=== PATIENT | female | born 1985 | race Caucasian/White ===

== ENCOUNTER 2018-12-18 21:16 | Emergency (ER) | payer MEDICAID, OTHER ==
--- OUTSIDE RECORDS SUMMARY | 2018-12-18 21:33 | XMS REPORT ---
Author Author Snow Shook [facility] Address [address] [place], [place] [id number] Care Team Providers Care Yarn Tester Name Role Phone Snow Shook PCP Unavailable Allergies and Adverse Reactions Name Reaction Notes NO KNOWN DRUG ALLERGIES Plan of Treatment Not available. Medications Active Name Start Date Estimated Completion Date SIG Comments Zyrtec 10 mg oral tablet take 1 tablet by oral route 2 times a day haloperidol 5 mg oral tablet take 1 tablet by oral route once a day (in the morning) and 2 tablets in PM Protonix 40 mg oral tablet,delayed release (DR/EC) take 1 tablet (40 mg ) by oral route once daily topiramate 200 mg oral tablet take 1 tablet (200 mg) by oral route 2 times per day guanfacine 2 mg oral tablet extended release 24 hr take 1 tablet by oral route once a day (in the morning) Latuda 40 mg oral tablet take 1 tablet (40 mg) by oral route once daily with food (at least 350 calories) TriNessa (28) 0.18/0.215/0.25 mg-35 mcg (28) oral tablet take 1 tablet by oral route once daily Systane 0.4-0.3 % ophthalmic drops instill 1 drop in affected eye 2 times a day acetaminophen 325 mg oral tablet take 1 tablet (325 mg) by oral route every 4 hours as needed Tinactin 1 % topical aerosol,spray apply spray to affected area(s) by topical route 2 times a day triamcinolone acetonide 0.1 % topical cream apply a thin layer to the affected area(s) by topical route 2 times per day Benadryl Itch Stopping 1-0.1 % topical cream apply to affected area(s) by topical route 2 times a day ibuprofen 600 mg oral tablet 02/18/2016 take 1 tablet by oral route 3 times a day as needed Benefiber Clear SF (dextrin) 3 gram/3.5 gram oral powder in packet Cogentin 2 mg/2 mL injection solution Cough Drops mucous membrane Name Start Date Expiration Date SIG Comments benztropine 1 mg oral tablet take 1 tablet (1 mg) by oral route 2 times per day Depakote 500 mg oral tablet,delayed release (DR/EC) take 1 tablet (500 mg) by oral route 2 times per day Keppra XR 500 mg oral tablet extended release 24 hr take 1 tablet by oral route 2 times a day amoxicillin 500 mg oral capsule 09/24/2015 10/01/2015 take 1 capsule (500 mg ) by oral route 3 times per day for 7 days Macrobid 100 mg oral capsule 10/31/2015 11/05/2015 take 1 capsule (100 mg) by oral route every 12 hours with food for 5 days Zyrtec-D 5-120 mg oral tablet extended release 12 hr 02/18/2016 02/25/2016 take 1 tablet by oral route 2 times per day for 7 days Nexplanon 68 mg subdermal implant 03/08/2016 03/23/2013 implant 1 by subdermal route daily for 1 day Problem List Description Status Onset Bipolar Disorder Active GERD (gastroesophageal reflux disease) Active Mental retardation Active Seizure disorder Active Abdominal Pain Active NEXPLANON Insertion Active 03/08/2016 Vital Signs Date Time BP-Sys(mm[Hg] BP-Bertha(mm[Hg]) HR(bpm) RR(rpm) Temp WT HT HC BMI BSA BMI Percentile O2 Sat(%) 03/08/2016 10:41:00 AM 132 mmHg 76 mmHg 86 bpm 18 rpm 97 F 163 lbs 58 in 34.07 kg/m2 1.74 m2 02/18/2016 1:14:00 PM 120 mmHg 78 mmHg 74 bpm 16 rpm 96.4 F 164 lbs 70 in 23.5313 kg/m 1.9168 m 98 % 10/31/2015 3:46:00 PM 110 mmHg 70 mmHg 76 bpm 18 rpm 96.7 F 176 lbs 58 in 36.78 kg/m2 1.81 m2 99 % 09/24/2015 10:42:00 AM 110 mmHg 70 mmHg 67 bpm 16 rpm 97.2 F 172 lbs 58 in 35.9477 kg/m 1.7868 m 97 % 07/29/2014 1:45:00 PM 96 mmHg 60 mmHg 62 bpm 16 rpm 96.1 F 157 lbs 58 in 32.81 kg/m2 1.71 m2 99 % Social History Name Description Comments Tobacco Current some day smoker History of Procedures Date Ordered Description Order Status 11/06/2015 9:24 PM URINALYSIS AUTO W/O SCOPE Reviewed 03/08/2016 3:05 PM URINE TEST Reviewed 07/29/2014 12:00 AM US EXAM ABDOM COMPLETE Returned Results Summary Data and Description Results 08/01/2014 6:32 AM TEST UR NEGATIVE 11/06/2015 9:24 PM Color Ur yellow Glucose Ur-sCnc neg Hgb Ur Ql Strip neg WBC Est Ur Ql Strip mod 03/08/2016 3:05 PM Test, Urine Negative History Of Immunizations Not available. History of Past Illness Name Date of Onset Comments Bipolar Disorder Mental retardation Seizure disorder GERD (gastroesophageal reflux disease) Abdominal Pain NEXPLANON Insertion 03/08/2016 Abdominal Pain Jul 29 2014 1:47PM Abdominal pain, epigastric Jul 29 2014 1:47PM Dyspepsia Jul 29 2014 1:47PM Pharyngitis Sep 24 2015 10:44AM Acute cystitis without hematuria Oct 31 2015 3:46PM Rash Oct 31 2015 3:46PM Other allergic rhinitis Feb 18 2016 1:16PM Sinus congestion Feb 18 2016 1:16PM Headache Feb 18 2016 1:16PM NEXPLANON Insertion Mar 08 2016 10:50AM Special investigations and examinations; examination or test; examination or test, negative result Mar 08 2016 3:05PM Payers Insurance Name Company Name Plan Name Plan Number Policy Number Policy Group Number Start Date [facility] Comm [id number] Wednesday, 2012 [facility] Comm Plan of [id number] N/A History of Encounters Visit Date Visit Type Provider 03/08/2016 Office visit Snow Shook WOOD TOOL MAKER 02/18/2016 Office visit Edil Fox APRN 10/31/2015 Office visit Edil Fox WOOD TOOL MAKER 09/24/2015 Office visit Edil Fox WOOD TOOL MAKER 08/01/2014 [facility] Josh Tripathi MD 07/29/2014 Office visit Josh Tripathi MD
--- OUTSIDE RECORDS SUMMARY | 2018-12-18 21:33 | XMS REPORT ---
Author Author DAGOBERTO COSTELLO Organization [facility] Address [address] [place] [address] Care Team Providers Care Photographer Lithographic Name Role Phone DAGOBERTO COSTELLO Unavailable PROBLEMS Type Condition ICD9-CM Code ACK30-HV Code Onset Dates Condition Status SNOMED Code Problem Mood disorder F39 Active [id number] ALLERGIES Substance Reaction Event Type Date Status Depakote confusion Drug Allergy May, Active ENCOUNTERS Encounter Location Date Diagnosis [facility] [id number] [place] [id number] May, Encounter for annual routine gynecological examination Z01.419 ; control counseling Z30.09 ; Mood disorder F39 and FH: breast cancer in first degree relative when <50 years old Z80.3 [facility] [address] [id number] 18 Nov, 2016 [facility] [id number] [place] [id number] 18 Nov, 2016 Mood disorder F39 [facility] [address] [id number] [id number] March, Dental examination Z01.20 [facility] [address] [id number] [id number] March, [facility]counter for dental examination and cleaning without abnormal findings [facility] [id number] [id number] Oct, Encounter for dental examination Z01.20 [facility] [id number] [id number] Oct, Encounter for dental examination Z01.20 [facility] [id number] [id number] Sep, Encounter for dental examination Z01.20 Leanna CRESTON [address] [facility] [id number] [place] [id number] Aug, Encounter for dental examination Z01.20 Leanna CRESTON [address] [id number] [id number] Jul, Dental examination V72.2 PatriciaPER CRESTON [address] [facility] [id number] [id number] Apr, Dental examination V72.2 IMMUNIZATIONS No Known Immunizations SOCIAL HISTORY Never Assessed REASON FOR VISIT Annual physical (female)- +pap and breast exam. Is interested in taking nexplanon out, having irregular periods and numbness in arm [facility] PLAN OF CARE Activity Details Follow Up 1 Year; appt for nexplanon removal prn Reason: Pending Test TRICHOMONAS (IN HOUSE) VITAL SIGNS Height 58 in 2018-06-02 Weight 189.1 lbs 2018-06-02 Temperature 97.8 degrees Fahrenheit 2018-06-02 Heart Rate 80 bpm 2018-06-02 Respiratory Rate 16 2018-06-02 BMI 39.52 kg/m2 2018-06-02 Blood pressure systolic 124 mmHg 2018-06-02 Blood pressure diastolic 70 mmHg 2018-06-02 MEDICATIONS Medication Instructions Dosage Frequency Start Date End Date Duration Status Classic 28-0.8 MG Orally Once a day 1 tablet 24h 20 May, 2018 30 day(s) Active Venlafaxine HCl 37.5 MG Orally Twice a day 1 tablet with food 12h 18 Nov, 2016 30 days Active RESULTS No Results PROCEDURES Procedure Date Ordered Result Body Site LAB NOT BILLED BY [facility] June 02, 2018 SPECIMEN HANDLING June 02, 2018 INSTRUCTIONS MEDICATIONS ADMINISTERED No Known Medications MEDICAL (GENERAL) HISTORY Type Description Date Medical History thyroid Medical History adhd Medical History mental retardation Surgical History tonsillectomy and adenoidectomy Surgical History Sinus surgery Surgical History eye correction surgery
--- OUTSIDE RECORDS SUMMARY | 2018-12-18 21:33 | XMS REPORT | Referral Summary ---
Author Author [facility]3] Organization [facility]3] Address Unknown Phone Unavailable Care Team Providers Care Hospital Liaison Name Role Phone No PCP, Pt States PCP Encounter VC Date(s): 01/30/18 - 01/30/18 [facility]3] [address] [place] [address] [place] Encounter Diagnosis Ankle pain (Discharge Diagnosis) - 01/30/18 Discharge Disposition: 01-Home or Self Care Attending Physician: Delmer Romano MD Admitting Physician: Delmer Romano MD Vital Signs Most recent to 1 oldest [Reference Range]: Temperature Oral 36.7 degC [35.8-37.3 degC] (01/30/18 10:43 AM) Peripheral Pulse 66 bpm Rate [60-100 bpm] (01/30/18 12:42 PM) Respiratory Rate 20 br/min [14-20 br/min] (01/30/18 12:42 PM) Blood Pressure 153/89 mmHg [90-140/60-90 mmHg] *HI* (01/30/18 12:42 PM) SpO2 96 % (01/30/18 12:42 PM) Problem List Condition Effective Dates Status Health Status Informant Hypertension(Confirm Active patient ed) Seasonal Active patient allergies(Confirmed) Allergies, Adverse Reactions, Alerts Substance Reaction Severity Status TEGretol Active Medications ibuprofen 0 Refill(s) Start Date: 12/04/17 Status: Ordered Implant Implant, 0 Refill(s), Indication: control Start Date: 12/04/17 Status: Ordered Tylenol Extra Strength Oral, q6hr, 0 Refill(s) Start Date: 12/04/17 Status: Ordered ZyrTEC Daily, 0 Refill(s) Start Date: 12/04/17 Status: Ordered Results No data available for this section Immunizations No data available for this section Procedures No data available for this section Social History Social History Type Response Smoking Status 5-9 cigarettes (between 1/4 to 1/2 pack)/day in last 30 days ; Type: Cigarettes entered on: 12/04/17 Assessment and Plan No data available for this section
--- OUTSIDE RECORDS SUMMARY | 2018-12-18 21:33 | XMS REPORT ---
Author Author Edil Fox [facility] Address [address] [place], [place] [id number] Care Team Providers Care Tree Scout Name Role Phone Edil Fox PCP Allergies and Adverse Reactions Name Reaction Notes [...] by topical route 2 times a day Name Start Date Expiration Date SIG Comments [...] 12 hours with food for 5 days Problem List Description Status Onset Bipolar Disorder Active GERD (gastroesophageal reflux disease) Active Mental retardation Active Seizure disorder Active Abdominal Pain Active Vital Signs Date Time BP-Sys(mm[Hg] BP-Bertha(mm[Hg]) HR(bpm) RR(rpm) Temp WT HT HC BMI BSA BMI Percentile O2 Sat(%) 10/31/2015 3:46:00 PM 110 mmHg 70 mmHg [...] % Social History Name Description Comments Tobacco Never smoker History of Procedures Date Ordered Description Order Status 11/06/2015 9:24 PM URINALYSIS AUTO W/O SCOPE Reviewed 07/29/2014 12:00 AM US EXAM ABDOM COMPLETE Returned Results Summary Data and Description Results 08/01/2014 6:32 AM TEST UR NEGATIVE 11/06/2015 9:24 PM Color Ur yellow Glucose Ur-sCnc neg Hgb Ur Ql Strip neg WBC Est Ur Ql Strip mod History Of Immunizations Not available. History of Past Illness Name Date of Onset Comments Bipolar Disorder Mental retardation Seizure disorder GERD (gastroesophageal reflux disease) Abdominal Pain Abdominal Pain Jul 29 2014 1:47PM Abdominal pain, epigastric Jul 29 2014 1:47PM Dyspepsia Jul 29 2014 1:47PM Pharyngitis Sep 24 2015 10:44AM Acute cystitis without hematuria Oct 31 2015 3:46PM Rash Oct 31 2015 3:46PM Payers Insurance Name Company Name Plan Name Plan Number Policy Number Policy Group Number Start Date [facility] - [facility] Comm [id number] Wednesday, 2012 [facility] Community Plan [facility] Comm Plan of [id number] N/A History of Encounters Visit Date Visit Type Provider 10/31/2015 Office visit Edil Fox APRN 09/24/2015 Office visit Edil Fox APRN 08/01/2014 [facility] Josh Tripathi MD 07/29/2014 Office visit Josh Tripathi MD
--- OUTSIDE RECORDS SUMMARY | 2018-12-18 21:33 | XMS REPORT ---
Author Author Edil Fox [facility] Address [address] [place], [place] [id number] Care Team Providers Care Blood Typer Name Role Phone Edil Fox PCP Allergies [...] by topical route 2 times a day amoxicillin 500 mg oral capsule 09/24/2015 10/01/2015 take 1 capsule (500 mg ) by oral route 3 times per day for 7 days Name Start Date Expiration Date SIG Comments benztropine 1 mg oral tablet take 1 tablet (1 mg) by oral route 2 times per day Depakote 500 mg oral tablet,delayed release (DR/EC) take 1 tablet (500 mg) by oral route 2 times per day Keppra XR 500 mg oral tablet extended release 24 hr take 1 tablet by oral route 2 times a day Problem List Description Status Onset Bipolar Disorder Active GERD (gastroesophageal reflux disease) Active Mental retardation Active Seizure disorder Active Abdominal Pain Active Vital Signs Date Time BP-Sys(mm[Hg] BP-Bertha(mm[Hg]) HR(bpm) RR(rpm) Temp WT HT HC BMI BSA BMI Percentile O2 Sat(%) 09/24/2015 10:42:00 AM 110 mmHg 70 mmHg 67 bpm 16 rpm 97.2 F 172 lbs 58 in 35.95 kg/m2 1.79 m2 97 % 07/29/2014 1:45:00 PM 96 mmHg 60 mmHg 62 bpm 16 rpm 96.1 F 157 lbs 58 in 32.8127 kg/m 1.7071 m 99 % Social History Name Description Comments Tobacco Never smoker History of Procedures Date Ordered Description Order Status 07/29/2014 12:00 AM US EXAM ABDOM COMPLETE Returned Results Summary Data and Description Results 08/01/2014 6:32 AM TEST UR NEGATIVE History Of Immunizations Not available. History of Past Illness Name Date of Onset Comments Bipolar Disorder Mental retardation Seizure disorder GERD (gastroesophageal reflux disease) Abdominal Pain Abdominal Pain Jul 29 2014 1:47PM Abdominal pain, epigastric Jul 29 2014 1:47PM Dyspepsia Jul 29 2014 1:47PM Pharyngitis Sep 24 2015 10:44AM Payers Insurance Name Company Name Plan Name Plan Number Policy Number Policy Group Number Start Date [facility] - Community [facility] Comm [id number] Wednesday, 2012 [facility] Comm Plan of [id number] N/A History of Encounters Visit Date Visit Type Provider 09/24/2015 Office visit Edil Fox APRN 08/01/2014 [facility] Josh Tripathi MD 07/29/2014 Office visit Josh Tripathi MD
--- OUTSIDE RECORDS SUMMARY | 2018-12-18 21:33 | XMS REPORT | Referral Summary ---
Author Author [facility] Organization [facility] Address Unknown Phone Unavailable Care Team Providers Care Leisure Studies Professor Name Role Phone No PCP, Pt States PCP Encounter VC Date(s): 12/04/17 - 12/04/17 [facility] [address] [place] [address] [phone] Discharge Diagnosis: Fever Discharge Diagnosis: Influenza A Discharge Disposition: 01-Home or Self Care Attending Physician: Delmer Romano MD Admitting Physician: Delmer Romano MD Vital Signs Most recent to 1 oldest [Reference Range]: Temperature Oral 37.2 degC [35.8-37.3 degC] (12/04/17 11:12 AM) Peripheral Pulse 94 bpm Rate [60-100 bpm] (12/04/17 11:12 AM) Heart Rate Monitored 93 bpm [60-100 bpm] (12/04/17 11:00 AM) Respiratory Rate 20 br/min [14-20 br/min] (12/04/17 11:12 AM) Blood Pressure 101/62 mmHg [90-140/60-90 mmHg] (12/04/17 11:12 AM) Mean Arterial 85 mmHg Pressure, Cuff (12/04/17 11:00 AM) SpO2 95 % (12/04/17 11:12 AM) Problem List Condition Effective Dates Status Health Status Informant Hypertension(Confirm Active patient ed) Seasonal Active patient allergies(Confirmed) Allergies, Adverse Reactions, Alerts Substance Reaction Severity Status TEGretol Active Medications ibuprofen 0 Refill(s) Start Date: 12/04/17 Status: Ordered ibuprofen 800 mg oral tablet 800 mg 1 tabs, Oral, q8hr, as needed for pain, X 7 days, # 21 tabs, 0 Refill(s) Start Date: 12/04/17 Stop Date: 12/11/17 Status: Ordered Implant Implant, 0 Refill(s), Indication: control Start Date: 12/04/17 Status: Ordered Tamiflu 75 mg oral capsule 75 mg 1 caps, Oral, BID, X 5 days, # 10 caps, 0 Refill(s) Start Date: 12/04/17 Stop Date: 12/09/17 Status: Ordered Tylenol Extra Strength Oral, q6hr, 0 Refill(s) Start Date: 12/04/17 Status: Ordered ZyrTEC Daily, 0 Refill(s) Start Date: 12/04/17 Status: Ordered Results Chemistry Most recent to 1 oldest [Reference Range]: Sodium Venous 137 mEq/L [136-144 mEq/L] (12/04/17 9:09 AM) Potassium Venous 4.0 mEq/L 1 [3.6-5.1 mEq/L] (12/04/17 9:09 AM) Calcium Ionized 1.12 mmol/L Venous [1.19-1.41 *LOW* mmol/L] (12/04/17 9:09 AM) Total CO2 Venous 30 mEq/L [25-29 mEq/L] *HI* (12/04/17 9:09 AM) HGB Venous NPT 13.9 gm/dL [12.0-16.0 gm/dL] (12/04/17 9:09 AM) HCT Venous 41.0 % [37.0-47.0 %] (12/04/17 9:09 AM) Glucose Venous 118 mg/dL [70-100 mg/dL] *HI* (12/04/17 9:09 AM) BUN Venous [4-20] 10 (12/04/17 9:09 AM) Creatinine Venous 0.5 mg/dL [0.4-1.0 mg/dL] (12/04/17 9:09 AM) Venous CL [99-109 102 mEq/L mEq/L] (12/04/17 9:09 AM) Anion Gap, Yuriy [3-20 5 mEq/L mEq/L] (12/04/17 9:09 AM) Screen, Negative Urine NPT (12/04/17 9:25 AM) Lactic Acid-POC 1.1 mEq/L [0.5-2.0 mEq/L] (12/04/17 9:09 AM) 1Result Comment: This test was performed on a whole blood specimen. The presence or absence of hemolysis cannot be assessed. Hemolysis can falsely elevate potassium levels. Normals are for venous specimens only. Urinalysis Most recent to 1 oldest [Reference Range]: UA Color Yellow (12/04/17 9:20 AM) UA Appear Clear (12/04/17 9:20 AM) UA pH [5.0-8.0] 7.0 (12/04/17 9:20 AM) UA Leuk Est Negative [Negative] (12/04/17 9:20 AM) UA Nitrite Negative [Negative] (12/04/17 9:20 AM) UA Protein Negative [Negative] (12/04/17 9:20 AM) UA Glucose Negative [Negative] (12/04/17 9:20 AM) UA Ketones Negative [Negative] (12/04/17 9:20 AM) UA Urobilinogen Negative [<1.0] (12/04/17 9:20 AM) UA Bili [Negative] Negative (12/04/17 9:20 AM) UA Blood [Negative] Negative (12/04/17 9:20 AM) UA Spec Grav 1.020 [1.003-1.030] (12/04/17 9:20 AM) Type Clean Catch (12/04/17 9:20 AM) Immunizations No data available for this section Procedures No data available for this section Social History Social History Type Response Smoking Status 5-9 cigarettes (between 1/4 to 1/2 pack)/day in last 30 days ; Type: Cigarettes entered on: 12/04/17 Assessment and Plan No data available for this section
--- OUTSIDE RECORDS SUMMARY | 2018-12-18 21:33 | XMS REPORT ---
Author Author Snow Shook [facility] Address [address] [place], [place] [id number] Care Team Providers Care Airway Controller Name Role Phone Snow Shook PCP Unavailable [...] 1:16PM NEXPLANON Insertion Mar 08 2016 10:50AM Payers Insurance Name Company Name Plan Name Plan Number Policy Number Policy Group Number Start Date [facility] [id number] Wednesday, 2012 [facility] Comm Plan of [id number] N/A History of Encounters Visit Date Visit Type Provider 03/08/2016 Office visit Snow Shook ASBESTOS REMOVAL WORKER 02/18/2016 Office visit Edil Fox APRN 10/31/2015 Office visit Edil Fox APRN 09/24/2015 Office visit Edil Fox APRN 08/01/2014 [facility] Josh Tripathi MD 07/29/2014 Office visit Josh Tripathi MD
--- OUTSIDE RECORDS SUMMARY | 2018-12-18 21:33 | XMS REPORT ---
Author Author Edil Fox [facility] Address [address] [place], [place] [id number] Care Team Providers Care Warp Hand Name Role Phone Edil Fox PCP Allergies [...] route 3 times a day as needed Name Start Date Expiration Date SIG Comments [...] 2 times per day for 7 days Problem List Description Status Onset Bipolar Disorder Active GERD (gastroesophageal reflux disease) Active Mental retardation Active Seizure disorder Active Abdominal Pain Active Vital Signs Date Time BP-Sys(mm[Hg] BP-Bertha(mm[Hg]) HR(bpm) RR(rpm) Temp WT HT HC BMI BSA BMI Percentile O2 Sat(%) 02/18/2016 1:14:00 PM 120 mmHg 78 mmHg 74 bpm 16 rpm 96.4 F 164 lbs 70 in 23.53 kg/m2 1.92 m2 98 % 10/31/2015 3:46:00 PM 110 mmHg 70 mmHg 76 bpm 18 rpm 96.7 F 176 lbs 58 in 36.7837 kg/m 1.8075 m 99 % 09/24/2015 10:42:00 AM 110 mmHg [...] 2016 1:16PM Headache Feb 18 2016 1:16PM Payers Insurance Name Company Name Plan Name Plan Number Policy Number Policy Group Number Start Date [facility] - Community Plan [facility] Comm [id number] Wednesday, 2012 [facility] Comm Plan of [id number] N/A History of Encounters Visit Date Visit Type Provider 02/18/2016 Office visit Edil Fox APRN 10/31/2015 Office visit Edil Fox APRN 09/24/2015 Office visit Edil Fox APRN 08/01/2014 [facility] Josh Tripathi MD 07/29/2014 Office visit Josh Tripathi MD
--- OUTSIDE RECORDS SUMMARY | 2018-12-18 21:34 | XMS REPORT | Continuity of Care Document ---
Author Author [facility] Address Unknown Phone Unavailable Allergies Active Description Code Type Severity Reaction Onset Reported/Identified Relationship to Patient Clinical Status Yes NKDA N/A N/A Yes NKDA N/A N/A Yes NKDA N/A N/A Yes TEGretol NKMA N/A N/A 12/04/2017 Medications Medication Packaging Start Date Stop Date Route Dosage Sig ZYRTEC ALLERGY ORAL 02/13/2015 ORAL 3030 daily TOPAMAX ORAL 02/13/2015 ORAL 6060 twice daily PROTONIX ORAL 02/13/2015 ORAL 3030 daily LATUDA ORAL 02/13/2015 ORAL 3030 daily INTUNIV ORAL 02/13/2015 ORAL 3030 at bedtime HALDOL ORAL 02/13/2015 ORAL 6060 twice daily COGENTIN ORAL 02/13/2015 ORAL 3030 at bedtime ZYRTEC ALLERGY ORAL 04/28/2015 12/08/2015 ORAL 3030 daily TYLENOL ORAL 04/28/2015 ORAL 204620 every 4 hours TRIAMCINOLONE ACETONIDE EXTERNAL 07/24/2015 EXTERNAL 1515 TOPAMAX ORAL 04/28/2015 ORAL 6060 twice daily PROTONIX ORAL 04/28/2015 12/08/2015 ORAL 3030 daily LATUDA ORAL 04/28/2015 ORAL 3030 daily INTUNIV ORAL 04/28/2015 ORAL 3030 at bedtime HALDOL ORAL 04/28/2015 ORAL 6060 twice daily DIPHENHYDRAMINE-ZINC ACETATE 3030 COGENTIN ORAL 04/28/2015 ORAL 3030 twice each day TRI-SPRINTEC ORAL 05/09/2015 ORAL 2828 daily TRI-SPRINTEC ORAL 05/19/2015 ORAL 2828 daily TRIAMCINOLONE ACETONIDE EXTERNAL 07/24/2015 EXTERNAL 1515 ZYRTEC ALLERGY ORAL 12/08/2015 ORAL 3030 daily PROTONIX ORAL 12/08/2015 ORAL 3030 daily acetaminophen(acetaminophen) 2 tabs 12/04/2017 12/04/2017 Oral 1,000 mg 1,000 mg=2 tabs, Oral, Once ondansetron(ondansetron) 2 mL 12/0412/04/2017 IV Push 4 mg 4 mg=2 mL, IV Push, Once cetirizine(ZyrTEC) 12/04/2017 Daily, 0 Refill(s) ibuprofen(ibuprofen) 12/04/2017 0 Refill(s) ibuprofen(ibuprofen) 1 tabs 201712/04/2017 Oral 800 mg 800 mg=1 tabs, Oral, Once oseltamivir(Tamiflu 75 mg oral capsule) 1 caps 12/04/2017 12/09/2017 Oral 75 mg 75 mg=1 caps, Oral, BID, for 5 days, 10 caps, 0 Refill (s) ibuprofen(ibuprofen 800 mg oral tablet) 1 tabs 12/04/2017 12/11/2017 Oral 800 mg 800 mg=1 tabs, Oral, q8hr, for 7 days, PRN: as needed for pain, 21 tabs, 0 Refill(s) Problems Date Dx Coded Attending Type Code Diagnosis Diagnosed By 12/06/2017 Romano Howard Final F17.210 Nicotine dependence, cigarettes, uncomplicated 12/06/2017 Romaon Howard Final F31.9 Bipolar disorder, unspecified 12/06/2017 Romano Howard Final J10.1 Influenza due to other identified influenza virus with other respiratory ma 12/06/2017 Romano Howard Reason R52 Pain, unspecified 12/06/2017 Romano Howard Final Z59.0 Homelessness 12/06/2017 Romano Howard Final Z88.8 Allergy status to other drugs, medicaments and biological substances status 02/07/2018 Romano Howard Final F17.210 Nicotine dependence, cigarettes, uncomplicated 02/07/2018 Romano Howard Final I10 Essential (primary) hypertension 02/07/2018 Romano Howard Reason M25.571 Pain in right ankle and joints of right foot 02/07/2018 Romano Howard Final Z88.8 Allergy status to other drugs, medicaments and biological substances status Procedures There is no data. Results Test Result Range Chem 8 NPT - 12/04/17 09:09 Anion Gap 5 mEq/L 3-20 BUN Venous 10 mg/dl 4-20 Calcium Ionized Venous 1.12 mmol/L 1.19-1.41 Creatinine Venous 0.5 mg/dL 0.4-1.0 Glucose Venous 118 mg/dL 70-100 Potassium, WB 4.0 mEq/L 3.6-5.1 Sodium Venous 137 mEq/L 136-144 Total CO2 Venous 30 mEq/L 25-29 Venous CL 102 mEq/L 99-109 HCT Venous 41.0 % 37.0-47.0 HGB Venous NPT 13.9 g/dL 12.0-16.0 Lactic Acid NPT - 12/04/17 09:09 Lactic Acid NPT 1.1 mEq/L 0.5-2.0 Urinalysis with reflex microscopic - 12/04/17 09:20 Appearance Clear NA Bilirubin Negative NA Negative Blood Negative NA Negative Color Yellow NA Glucose, Urine Negative Negative Ketones Negative Negative Leukocyte Esterase Negative NA Negative Nitrites Negative NA Negative pH 7.0 NA 5.0-8.0 Protein Negative NA Negative Specific [place] 1.020 NA 1.003-1.030 UA Collection type Clean Catch NA Urobilinogen Negative mg/dL <1.0 Screen, Urine NPT - 12/04/17 09:25 Screen, Urine NPT Negative NA CULTURE, GENITAL - 06/02/18 11:58 CULTURE, GENITAL SEE NOTE NRG GC/CHLAMYDIA (SWAB OR URINE)-RAPID - 06/02/18 11:58 CHLAMYDIA TRACHOMATIS RNA, TMA NOT DETECTED NOT DETECTED NEISSERIA GONORRHOEAE RNA, TMA NOT DETECTED NOT DETECTED COMMENT NRG SUREPATH PAP AND HPV mRNA E6/E7 REFLEX GENOTYPES 16, 18/45 - 06/02/18 11:58 CLINICAL INFORMATION: NRG LMP: 05/19/18 NRG PREV. PAP: UNKNOWN NRG PREV. BX: NONE NRG SOURCE: [employer]oc[employer] NRG STATEMENT OF ADEQUACY: NRG INTERPRETATION/RESULT: NRG HOOP MAKER MACHINE: NRG HPV mRNA E6/E7, SUREPATH VIAL Not Detected NOT DETECTED INFECTION: NRG COMMENT NRG Encounters ACCT No. Visit Date/Time Discharge Status Pt. Type Provider Facility Loc./Unit Complaint [id number] 10/31/2015 16:39:10 10/31/2015 23:59:59 CLS Outpatient Edil Fox [id number] 09/24/2015 11:35:01 09/24/2015 23:59:59 CLS Outpatient Edil Fox [id number] 08/07/2014 14:40:43 08/07/2014 23:59:59 CLS Outpatient Josh Tripathi [id number] 07/29/2014 16:52:46 07/29/2014 23:59:59 CLS Outpatient Josh Tripathi [id number] 06/02/2018 10:20:00 06/02/2018 23:59:59 CLS Outpatient JULITA MADDEN [facility] [id number] 06/02/2018 11:58:00 Document Registration [id number] 06/02/2018 10:20:00 Document Registration [id number] 01/06/2015 18:25:01 Document Registration [id number] 01/06/2015 11:00:00 Document Registration [id number] 06/24/2016 19:14:03 06/24/2016 19:14:03 DIS Outpatient [facility] [id number] 04/28/2015 14:56:28 04/28/2015 14:56:29 DIS Outpatient [id number] 02/13/2015 10:12:36 Document Registration [id number] 02/13/2015 10:12:35 Document Registration [id number] 02/13/2015 10:12:34 Document Registration [id number] 02/13/2015 10:12:33 Document Registration [id number] 02/13/2015 10:12:32 Document Registration [id number] 02/13/2015 10:10:20 Document Registration [id number] 02/13/2015 10:10:17 Document Registration [id number] 02/13/2015 10:10:15 Document Registration [id number] 02/13/2015 10:10:13 Document Registration [id number] 02/13/2015 10:08:06 Document Registration [id number] 02/13/2015 10:08:05 Document Registration [id number] 01/30/2018 10:13:00 01/30/2018 12:43:00 DIS Emergency Romano Howard [facility] ED ankles pain [id number] 12/04/2017 08:18:00 12/04/2017 11:15:00 DIS Emergency Romano Howard [facility] ED flu like symptoms [id number] 12/05/2017 05:17:13 Document Registration
--- OUTSIDE RECORDS SUMMARY | 2018-12-18 21:34 | XMS REPORT ---
Author MAJOR Barcenas [facility] eClinicalWorks Address Unknown Phone Unavailable Care Team Providers Care Higher Level Teaching Assistant Name Role Phone MAJOR HILARIO CP Unavailable Allergies, Adverse Reactions, Alerts Substance Reaction Event Type N.K.D.A. Info Not Available Non Drug Allergy Problems Problem Type Condition Code Onset Dates Condition Status Assessment Encounter for dental examination Z01.20 Active Medications Medication Code System Code Instructions Start Date End Date Status Dosage Amoxicillin [facility] [address]-94 not defined Triamcinolone Acetonide [facility] [address]-19 0.1 % Externally Twice a day 1 application to affected area Ortho Tri-Cyclen (28) [facility] [address]-61 0.18/0.215/0.25 MG-35 MCG Orally Once a day 1 tablet Latuda [facility] [address]-59 40 MG Orally Once a day 1 tablet with food Pantoprazole Sodium [facility] [address]-93 40 MG Orally Once a day 1 tablet Tinactin [facility] [address]-03 1 % Externally not defined Acetaminophen [facility] [address]-36 325 MG Orally every 6 hrs 1 tablet as needed Zyrtec Allergy [facility] [address]-92 10 MG Orally Once a day 1 tablet as needed Topiramate [facility] [address]-98 200 MG Orally Twice a day 1 tablet Guanfacine HCl [facility] [address]-28 2 MG Orally Once a day 1 tablet at bedtime Haloperidol [facility] [address]-51 5 MG Orally Once a day 1 tablet Systane [facility] [address]-72 0.4-0.3 % Ophthalmic 24 time(s) a day 1 drop into affected eye as needed Cetirizine HCl [facility] [address]-69 not defined Diphenhydramine ND 0 Oral 1 tab Benztropine Mesylate [facility] [address]-77 1 MG Orally twice daily 1 Procedures Procedure Coding System Code Date PROPHYLAXIS - ADULT CPT-4 D1110 Oct 02, 2015 TOPICAL FLUORIDE VARNISH CPT-4 D1206 Oct 02, 2015 PERIODIC ORAL EXAMINATION CPT-4 D0120 Oct 02, 2015 Vital Signs Date/Time: Oct 02, 2015 Blood Pressure Diastolic 73 mmHg Blood Pressure Systolic 108 mmHg Cardiac Monitoring Heart Rate 69 bpm Results No Known Results Summary Purpose eClinicalWorks Submission
--- OUTSIDE RECORDS SUMMARY | 2018-12-18 21:34 | XMS REPORT ---
Author Author JULITA MADDEN [facility] eClinicalWorks Address Unknown Phone Unavailable Care Team Providers Care Last Waxer Name Role Phone JULITA MADDEN Unavailable Allergies, Adverse Reactions, Alerts Substance Reaction Event Type N.K.D.A. Info Not Available Non Drug Allergy Problems Problem Type Condition Code Onset Dates Condition Status Assessment Encounter for dental examination Z01.20 Active Medications Medication Code System Code Instructions Start Date End Date Status Dosage Topiramate [facility] [address]-09 200 MG Orally Twice a day 1 tablet Haloperidol [facility] [address]-47 5 MG Orally Once a day 1 tablet Diphenhydramine [facility] 0 Oral 1 tab Zyrtec Allergy [facility] [address]-69 10 MG Orally Once a day 1 tablet as needed Tinactin [facility] [address]-96 1 % Externally not defined Guanfacine HCl [facility] [address]-07 2 MG Orally Once a day 1 tablet at bedtime Triamcinolone Acetonide [facility] [address]-54 0.1 % Externally Twice a day 1 application to affected area Systane [facility] [address]-67 0.4-0.3 % Ophthalmic 24 time(s) a day 1 drop into affected eye as needed Acetaminophen [facility] [address]-51 325 MG Orally every 6 hrs 1 tablet as needed Pantoprazole Sodium [facility] [address]-90 40 MG Orally Once a day 1 tablet Cetirizine HCl [facility] [address]-02 not defined Benztropine Mesylate [facility] [address]-84 1 MG Orally twice daily 1 Latuda [facility] [address]-92 40 MG Orally Once a day 1 tablet with food Ortho Tri-Cyclen (28) [facility] [address]-06 0.18/0.215/0.25 MG-35 MCG Orally Once a day 1 tablet Procedures Procedure Coding System Code Date Billing Notes on claim CPT-4 EC109 Oct 31, 2015 AMALGAM-ONE SURFACE PRIMARY/PERM CPT-4 D2140 Oct 31, 2015 Vital Signs Date/Time: Oct 31, 2015 Blood Pressure Diastolic 84 mmHg Blood Pressure Systolic 124 mmHg Results No Known Results Summary Purpose eClinicalWorks Submission
--- OUTSIDE RECORDS SUMMARY | 2018-12-18 21:34 | XMS REPORT ---
Author Author GRAZYNA PAN Organization [facility] Address Unknown Phone Unavailable Care Team Providers Care Rehab Rn Name Role Phone GRAZYNA PAN Unavailable Unavailable PROBLEMS Type Condition ICD9-CM Code [id number] Code Onset Dates Condition Status SNOMED Code Problem Mood disorder F39 Active [id number] ALLERGIES Unknown Allergies SOCIAL HISTORY No smoking Hx information available PLAN OF CARE VITAL SIGNS MEDICATIONS Unknown Medications RESULTS No Results PROCEDURES No Known procedures IMMUNIZATIONS No Known Immunizations
--- OUTSIDE RECORDS SUMMARY | 2018-12-18 21:34 | XMS REPORT ---
Author Author JULITA MADDEN eClinical[employer] Address Unknown Phone Unavailable Care Team Providers Care Fish And Wildlife Technician Name Role Phone JULITA MADDEN CP Unavailable Allergies, Adverse Reactions, Alerts Substance Reaction Event Type N.K.D.A. Info Not Available Non Drug Allergy Problems Problem Type Condition Code Onset Dates Condition Status Assessment Encounter for dental examination Z01.20 Active Medications Medication Code System Code Instructions Start Date End Date Status Dosage Systane [facility] [address]-69 0.4-0.3 % Ophthalmic 24 time(s) a day 1 drop into affected eye as needed Haloperidol [facility] [address]-16 5 MG Orally Once a day 1 tablet Tinactin [facility] [address]-12 1 % Externally not defined Ortho Tri-Cyclen (28) [facility] [address]-91 0.18/0.215/0.25 MG-35 MCG Orally Once a day 1 tablet Pantoprazole Sodium [facility] [address]-45 40 MG Orally Once a day 1 tablet Topiramate [facility] [address]-16 200 MG Orally Twice a day 1 tablet Latuda [facility] [address]-11 40 MG Orally Once a day 1 tablet with food Benztropine Mesylate [facility] [address]-11 1 MG Orally twice daily 1 Diphenhydramine [facility] 0 Oral 1 tab Triamcinolone Acetonide [facility] [address]-47 0.1 % Externally Twice a day 1 application to affected area Guanfacine HCl [facility] [address]-98 2 MG Orally Once a day 1 tablet at bedtime Zyrtec Allergy [facility] [address]-07 10 MG Orally Once a day 1 tablet as needed Acetaminophen [facility] [address]-24 325 MG Orally every 6 hrs 1 tablet as needed Procedures Procedure Coding System Code Date RESIN COMPOS - 2 SURFACES POSTERIOR CPT-4 D2392 Sep 10, 2015 Vital Signs Date/Time: Sep 10, 2015 Blood Pressure Diastolic 83 mmHg Blood Pressure Systolic 135 mmHg Cardiac Monitoring Heart Rate 91 bpm Results No Known Results Summary Purpose eClinicalWorks Submission
--- OUTSIDE RECORDS SUMMARY | 2018-12-18 21:34 | XMS REPORT ---
Author Author DMITRY WEBSTER [facility] Address [address] [place] [address] Care Team Providers Care Rn Imaging Name Role Phone DMITRY WEBSTER Unavailable PROBLEMS Type Condition ICD9-CM Code [id number] Code Onset Dates Condition Status SNOMED Code Problem Mood disorder F39 Active [id number] ALLERGIES Unknown Allergies SOCIAL HISTORY No smoking Hx information available PLAN OF CARE Activity Details Follow Up 4 Weeks Reason:mood disorder VITAL SIGNS MEDICATIONS Medication Instructions Dosage Frequency Start Date End Date Duration Status Venlafaxine HCl 37.5 MG Orally Twice a day 1 tablet with food 12h Nov, Active RESULTS No Results PROCEDURES Procedure Date Ordered Related Diagnosis Body Site Office Visit, New Pt., Level 2 Dec 01, 2016 IMMUNIZATIONS No Known Immunizations
--- OUTSIDE RECORDS SUMMARY | 2018-12-18 21:34 | XMS REPORT ---
Author Author JULITA MADDEN [facility] eClinicalWorks Address Unknown Phone Unavailable Care Team Providers Care Creative Art Therapist Name Role Phone JULITA MADDEN Unavailable Allergies, Adverse Reactions, Alerts Substance Reaction Event Type N.K.D.A. Info Not Available Non Drug Allergy Problems Problem Type Condition Code Onset Dates Condition Status Assessment Encounter for dental examination Z01.20 Active Medications Medication Code System Code Instructions Start Date End Date Status Dosage Tinactin [facility] [address]-31 1 % Externally not defined Systane [facility] [address]-12 0.4-0.3 % Ophthalmic 24 time(s) a day 1 drop into affected eye as needed Latuda [facility] [address]-42 40 MG Orally Once a day 1 tablet with food Benztropine Mesylate [facility] [address]-29 1 MG Orally twice daily 1 Haloperidol [facility] [address]-11 5 MG Orally Once a day 1 tablet Acetaminophen [facility] [address]-62 325 MG Orally every 6 hrs 1 tablet as needed Pantoprazole Sodium [facility] [address]-97 40 MG Orally Once a day 1 tablet Ortho Tri-Cyclen (28) [facility] [address]-68 0.18/0.215/0.25 MG-35 MCG Orally Once a day 1 tablet Cetirizine HCl [facility] [address]-17 not defined Diphenhydramine ND 0 Oral 1 tab Topiramate [facility] [address]-60 200 MG Orally Twice a day 1 tablet Guanfacine HCl [facility] [address]-39 2 MG Orally Once a day 1 tablet at bedtime Triamcinolone Acetonide [facility] [address]-38 0.1 % Externally Twice a day 1 application to affected area Zyrtec Allergy [facility] [address]-74 10 MG Orally Once a day 1 tablet as needed Amoxicillin [facility] [address]-08 not defined Procedures Procedure Coding System Code Date RESIN COMPOS - 1 SURFACE POSTERIOR CPT-4 D2391 Oct 02, 2015 AMALGAM-ONE SURFACE PRIMARY/PERM CPT-4 D2140 Oct 14, 2015 Vital Signs Date/Time: Oct 14, 2015 Blood Pressure Diastolic 80 mmHg Blood Pressure Systolic 120 mmHg Cardiac Monitoring Heart Rate 74 bpm Results No Known Results Summary Purpose eClinicalWorks Submission
--- NOTE | 2018-12-18 22:38 | NUR ---
CAME TO WAITING ROOM, CALLED PT;S NAME THREE TIMES. PT NOT PRESENT IN WAITING ROOM.
== END 2018-12-18 22:38 | disposition left against medical advice (07) ==
LOC: ER 21:18
DX: R45.851 Suicidal ideations (principal)